=== PATIENT | male | born 1955 | race African-American/Black ===

== ENCOUNTER 2016-12-05 10:19 | Inpatient (IN) | payer OTHER ==
[~2016-12-05] VITALS: Ht 170.2 cm; Wt 85.0 kg
[~2016-12-05 10:19] MED LIST: FentaNYL CITRATE-PF 100 MCG/2 ML VIAL IVP ONE; HYDROmorphone 2 MG/ML SYRINGE IVP ONE; MIDAZOLAM HCL 2 MG/2 ML VIAL IVP ONE; MULT-71 PO
[2016-12-05 10:41] LABS: GLUCOSE,POINT OF CARE 105 MG/DL (70-110)
[2016-12-05] MEDS ORDERED: SULF1TAB42 PO (10:43)
[2016-12-05] MEDS ORDERED: ACETAMINOPHEN 1000 MG/ISO-OSM 100 ML IV ONE ×3 (11:15→17:01)
[2016-12-05] MEDS ORDERED: SODIUM CHLORIDE 0.9% 1,000 ML IV ONE ×2 (11:15→15:38)
[2016-12-05] MEDS ORDERED: VANCOMYCIN HCL 1 GM/D5% WATER 200 ML IV ONE (11:15)
[2016-12-05] MEDS ORDERED: SODIUM CHLORIDE 0.9% 100 ML ONE (11:24)
[2016-12-05] MEDS ORDERED: IOVERSOL 350 MG/ML 100 ML VIAL ONE (11:24)
[2016-12-05 11:40] LABS: BASOPHILS % (AUTO) 0.4 % (0.0-2.0); EOSINOPHILS % (AUTO) 0.6 % (1.0-6.0); HEMATOCRIT 51.9 % (41-53); HEMOGLOBIN 17.1 g/dL (13.5-17.5); LYMPHOCYTES # (AUTO) 1.4 K/uL (1.0-4.8); LYMPHOCYTES % (AUTO) 8.6 % (22.0-44.0); MEAN CORPUSCULAR HEMOGLOBIN 28.3 pg (26.0-34.0); MEAN CORPUSCULAR HGB CONC 32.9 G/dL (31.0-37.0); MEAN CORPUSCULAR VOLUME 86 fL (80-100); MONOCYTES # (AUTO) 1.2 K/uL (0.1-1.0); NEUTROPHILS # (AUTO) 13.7 K/uL (1.8-7.7); NEUTROPHILS % (AUTO) 83.4 % (40.0-70.0); PLATELET COUNT (AUTO) 189 K/uL (150-450); RED BLOOD CELL COUNT(AUTO) 6.03 MIL/uL (4.50-5.90); RED CELL DISTRIBUTION WIDTH 12.8 % (11.5-14.5); WHITE BLOOD COUNT (AUTO) 16.5 K/uL (4.5-11.0)
[2016-12-05 11:55] LABS: ANION GAP 10 mmol/L (8-16); CALCIUM, TOTAL 9.3 mg/dL (8.8-10.5); CARBON DIOXIDE 26 mmol/L (22-29); CHLORIDE 99 mmol/L (98-107); CREATININE 1.13 mg/dL (0.60-1.30); GLOMERULAR FILTR. RATE CALC > 60 mL/min (>60); POTASSIUM 4.5 mmol/L (3.5-5.1); SODIUM SERUM 135 mmol/L (136-145); UREA NITROGEN, BLOOD 14 mg/dL (7-18)
[2016-12-05 11:56] LABS: LACTIC ACID 1.2 mmol/L (0.4-2.0)
[2016-12-05 11:58] LABS: ALANINE AMINOTRANSFERASE 86 U/L (12-78); ASPARTATE AMINOTRANSFERASE 48 U/L (15-37); BILIRUBIN,TOTAL 1.1 mg/dL (0.1-1.0); TOTAL PROTEIN, SERUM 7.8 g/dL (6.4-8.2)
[2016-12-05] MEDS ORDERED: ZOLPIDEM TARTRATE 10 MG TABLET PO PRN (13:30)
[2016-12-05] MEDS ORDERED: MAGNESIUM HYDROXIDE SUSPENSION 30 ML UDCUP PO PRN (13:30)
[2016-12-05] MEDS ORDERED: ACETAMINOPHEN 325 MG TABLET PO PRN (13:30)
[2016-12-05] MEDS ORDERED: OxyCODONE HCL/ACETAMINOPHEN 5-325 MG TABLET PO PRN ×2 (13:30→16:30)
[2016-12-05] MEDS ORDERED: ONDANSETRON HCL 4 MG/2 ML VIAL IVP PRN ×2 (13:30→16:30)
[2016-12-05] MEDS ORDERED: BISACODYL 10 MG RECTAL RECTAL SUPPOSITORY PR PRN (13:30)
[2016-12-05] MEDS ORDERED: RINGERS SOLUTION,LACTATED 1,000 ML IV ONE ×2 (13:55→14:15)
[2016-12-05 14:56] LABS: GLUCOSE,POINT OF CARE 91 MG/DL (70-110)
[2016-12-05] MEDS: PIPERACILLIN/TAZO 3.375 GM/D5W 50 ML IV SCH ×2 (15:12→22:24)
[2016-12-05] MEDS ORDERED: SODIUM CHLORIDE 0.9% 10 ML ONE (15:37)
[2016-12-05] MEDS ORDERED: BACITRACIN 50,000 UNITS/VIAL ONE (15:38)
[2016-12-05] MEDS ORDERED: HEPARIN SODIUM,PORCINE 5,000 UNITS/ML VIAL SQ SCH (16:00)
[2016-12-05] MEDS ORDERED: RINGERS SOLUTION,LACTATED 500 ML IV ONE (16:17)
[2016-12-05] MEDS: HYDROmorphone 2 MG/ML SYRINGE IVP PRN ×3 (16:25→16:55)
[2016-12-05] MEDS ORDERED: HYDROmorphone 2 MG/ML SYRINGE ONE (16:26)
[2016-12-05] MEDS ORDERED: MEPERIDINE-PF 25 MG/ML SYRINGE IVP PRN (16:30)
[2016-12-05] MEDS ORDERED: NALOXONE HCL 1 MG/ML 2 ML SYG IVP PRN ×2 (16:30)
[2016-12-05 18:20] VITALS: BP 119/75
[2016-12-05 19:18] VITALS: BP 120/70
[2016-12-05] MEDS: VANCOMYCIN HCL 1 GM/D5% WATER 200 ML IV SCH (20:10)
[2016-12-05] MEDS: OXYGEN THERAPY IH SCH (20:11)
[2016-12-05] MEDS: DOCUSATE SODIUM 100 MG CAPSULE PO SCH (20:11)
[2016-12-05] MEDS ORDERED: SODIUM CHLORIDE 0.9% 500 ML IV ONE (20:15)
[2016-12-05 22:11] LABS: GLUCOSE COMMENT 1 Post Meal; GLUCOSE,POINT OF CARE 157 MG/DL (70-110)
[2016-12-05] MEDS ORDERED: NEOSTIGMINE METHYLSULFATE 1 MG/ML 10 ML VIAL IVP ONE (22:20)
[2016-12-05] MEDS ORDERED: ESMOLOL HCL 10 MG/ML 10 ML VIAL IVP ONE (22:20)
[2016-12-05] MEDS ORDERED: SUCCINYLCHOLINE CHLORIDE 20 MG/ML 10 ML VIAL IVP ONE (22:20)
[2016-12-05] MEDS ORDERED: GLYCOPYRROLATE 0.2 MG/ML VIAL IM ONE (22:20)
[2016-12-05] MEDS ORDERED: PROPOFOL 1% 20 ML VIAL IVP ONE (22:20)
[2016-12-05] MEDS ORDERED: ONDANSETRON HCL 4 MG/2 ML VIAL IVP ONE (22:20)
[2016-12-05] MEDS ORDERED: ROCURONIUM BROMIDE 10 MG/ML 5 ML VIAL IVP ONE (22:20)
[2016-12-05] MEDS: OxyCODONE HCL/ACETAMINOPHEN 5-325 MG TABLET PO PRN (22:32)
[2016-12-05 23:05] VITALS: BP 127/71
[2016-12-06] MEDS: PIPERACILLIN/TAZO 3.375 GM/D5W 50 ML IV SCH ×4 (02:55→20:48)
[2016-12-06] MEDS: OxyCODONE HCL/ACETAMINOPHEN 5-325 MG TABLET PO PRN ×2 (02:59→20:50)
[2016-12-06 04:22] VITALS: BP 116/63
[2016-12-06 07:22] VITALS: BP 117/65
[2016-12-06] MEDS: OXYGEN THERAPY IH SCH (08:00)
[2016-12-06] MEDS: VANCOMYCIN HCL 1 GM/D5% WATER 200 ML IV SCH ×2 (08:04→20:47)
[2016-12-06] MEDS: DOCUSATE SODIUM 100 MG CAPSULE PO SCH ×2 (08:04→20:48)
[2016-12-06] MEDS: PANTOPRAZOLE SODIUM 40 MG DR TABLET PO SCH (08:05)
[2016-12-06 08:16] LABS: GLUCOSE COMMENT 1 Received Meds; GLUCOSE,POINT OF CARE 110 MG/DL (70-110)
[2016-12-06 11:20] LABS: BASOPHILS % (AUTO) 0.4 % (0.0-2.0); EOSINOPHILS % (AUTO) 2.1 % (1.0-6.0); HEMATOCRIT 44.5 % (41-53); HEMOGLOBIN 14.5 g/dL (13.5-17.5); LYMPHOCYTES # (AUTO) 1.8 K/uL (1.0-4.8); LYMPHOCYTES % (AUTO) 12.1 % (22.0-44.0); MEAN CORPUSCULAR HEMOGLOBIN 28.2 pg (26.0-34.0); MEAN CORPUSCULAR HGB CONC 32.7 G/dL (31.0-37.0); MEAN CORPUSCULAR VOLUME 86 fL (80-100); MONOCYTES # (AUTO) 0.9 K/uL (0.1-1.0); MONOCYTES % (AUTO) 6.2 % (2.0-9.0); NEUTROPHILS # (AUTO) 11.6 K/uL (1.8-7.7); NEUTROPHILS % (AUTO) 79.2 % (40.0-70.0); PLATELET COUNT (AUTO) 187 K/uL (150-450); RED BLOOD CELL COUNT(AUTO) 5.15 MIL/uL (4.50-5.90); WHITE BLOOD COUNT (AUTO) 14.6 K/uL (4.5-11.0)
[2016-12-06 11:30] LABS: GLUCOSE,POINT OF CARE 112 MG/DL (70-110)
[2016-12-06 11:31] VITALS: BP 117/65
[2016-12-06 11:39] LABS: ALANINE AMINOTRANSFERASE 55 U/L (12-78); ANION GAP 3 mmol/L (8-16); ASPARTATE AMINOTRANSFERASE 30 U/L (15-37); BILIRUBIN,TOTAL 0.9 mg/dL (0.1-1.0); CALCIUM, TOTAL 8.5 mg/dL (8.8-10.5); CARBON DIOXIDE 32 mmol/L (22-29); CHLORIDE 99 mmol/L (98-107); CREATININE 1.26 mg/dL (0.60-1.30); GLOMERULAR FILTR. RATE CALC > 60 mL/min (>60); POTASSIUM 4.4 mmol/L (3.5-5.1); SODIUM SERUM 134 mmol/L (136-145); TOTAL PROTEIN, SERUM 6.8 g/dL (6.4-8.2); UREA NITROGEN, BLOOD 9 mg/dL (7-18)
[2016-12-06] MEDS ORDERED: SODIUM CL IRRIG SOLN BOTTLE 250 ML IRRIG ONE (13:43)
[2016-12-06] MEDS: MORPHINE SULFATE 2 MG/ML SYRINGE IVP PRN (13:44)
[2016-12-06 15:34] VITALS: BP 129/74
[2016-12-06 17:36] LABS: GLUCOSE,POINT OF CARE 141 MG/DL (70-110)
[2016-12-06 19:24] VITALS: BP 140/86
[2016-12-06 23:48] VITALS: BP 109/80
[2016-12-07] MEDS ORDERED: SODIUM CHLORIDE 0.9% 250 ML IV ONE (03:58)
[2016-12-07] MEDS: PIPERACILLIN/TAZO 3.375 GM/D5W 50 ML IV SCH ×4 (04:25→20:13)
[2016-12-07 04:36] VITALS: BP 109/64
[2016-12-07 06:55] LABS: BASOPHILS % (AUTO) 0.3 % (0.0-2.0); EOSINOPHILS % (AUTO) 2.6 % (1.0-6.0); HEMATOCRIT 41.7 % (41-53); HEMOGLOBIN 14.3 g/dL (13.5-17.5); LYMPHOCYTES # (AUTO) 2.2 K/uL (1.0-4.8); LYMPHOCYTES % (AUTO) 17.8 % (22.0-44.0); MEAN CORPUSCULAR HEMOGLOBIN 30.8 pg (26.0-34.0); MEAN CORPUSCULAR HGB CONC 34.4 G/dL (31.0-37.0); MEAN CORPUSCULAR VOLUME 89 fL (80-100); MONOCYTES # (AUTO) 0.8 K/uL (0.1-1.0); MONOCYTES % (AUTO) 6.3 % (2.0-9.0); NEUTROPHILS # (AUTO) 9.1 K/uL (1.8-7.7); PLATELET COUNT (AUTO) 185 K/uL (150-450); RED BLOOD CELL COUNT(AUTO) 4.66 MIL/uL (4.50-5.90); RED CELL DISTRIBUTION WIDTH 13.1 % (11.5-14.5); WHITE BLOOD COUNT (AUTO) 12.4 K/uL (4.5-11.0)
[2016-12-07 07:00] VITALS: BP 142/89
[2016-12-07 07:19] LABS: ALANINE AMINOTRANSFERASE 58 U/L (12-78); ALBUMIN 2.9 g/dL (3.4-5.0); ANION GAP 7 mmol/L (8-16); ASPARTATE AMINOTRANSFERASE 33 U/L (15-37); BILIRUBIN,TOTAL 0.9 mg/dL (0.1-1.0); CALCIUM, TOTAL 8.2 mg/dL (8.8-10.5); CARBON DIOXIDE 31 mmol/L (22-29); CHLORIDE 100 mmol/L (98-107); CREATININE 1.18 mg/dL (0.60-1.30); GLOMERULAR FILTR. RATE CALC > 60 mL/min (>60); POTASSIUM 4.2 mmol/L (3.5-5.1); SODIUM SERUM 138 mmol/L (136-145); TOTAL PROTEIN, SERUM 6.8 g/dL (6.4-8.2); UREA NITROGEN, BLOOD 11 mg/dL (7-18)
[2016-12-07] MEDS: PANTOPRAZOLE SODIUM 40 MG DR TABLET PO SCH (07:53)
[2016-12-07] MEDS: DOCUSATE SODIUM 100 MG CAPSULE PO SCH ×2 (07:53→20:12)
[2016-12-07] MEDS: OXYGEN THERAPY IH SCH ×2 (08:00→20:00)
[2016-12-07] MEDS: VANCOMYCIN HCL 1 GM/D5% WATER 200 ML IV SCH ×3 (08:50→23:35)
[2016-12-07 11:06] VITALS: BP 133/77
[2016-12-07 11:46] LABS: GLUCOSE,POINT OF CARE 157 MG/DL (70-110)
[2016-12-07] MEDS ORDERED: LIDOCAINE HCL 5% TRANSDERMAL PATCH TD ONE (14:00)
[2016-12-07] MEDS: MORPHINE SULFATE 2 MG/ML SYRINGE IVP PRN (15:05)
[2016-12-07 15:15] VITALS: BP 121/86
[2016-12-07] MEDS ORDERED: LIDOCAINE HCL 4% 50 ML SOLUTION TP ONE (15:45)
[2016-12-07] MEDS ORDERED: LIDOCAINE HCL 2% 30 ML JELLY TP SCH (17:00)
[2016-12-07 19:52] VITALS: BP 116/69
[2016-12-08] VITALS (7 sets, daily range): BP systolic 99–143; BP diastolic 61–96
[2016-12-08] MEDS: PIPERACILLIN/TAZO 3.375 GM/D5W 50 ML IV SCH ×4 (03:11→20:26)
[2016-12-08 07:11] LABS: BASOPHILS # (AUTO) 0.04 K/uL (0.00-0.20); BASOPHILS % (AUTO) 0.4 % (0.0-2.0); EOSINOPHILS # (AUTO) 0.27 K/uL (0.00-0.70); EOSINOPHILS % (AUTO) 2.77 % (1.0-6.0); HEMATOCRIT 43.9 % (41-53); HEMOGLOBIN 14.9 g/dL (13.5-17.5); LYMPHOCYTES # (AUTO) 1.8 K/uL (1.0-4.8); LYMPHOCYTES % (AUTO) 18.6 % (22.0-44.0); MEAN CORPUSCULAR HEMOGLOBIN 29.2 pg (26.0-34.0); MEAN CORPUSCULAR HGB CONC 33.9 G/dL (31.0-37.0); MEAN CORPUSCULAR VOLUME 86 fL (80-100); MONOCYTES # (AUTO) 0.5 K/uL (0.1-1.0); MONOCYTES % (AUTO) 5.1 % (2.0-9.0); NEUTROPHILS # (AUTO) 7.1 K/uL (1.8-7.7); NEUTROPHILS % (AUTO) 73.2 % (40.0-70.0); PLATELET COUNT (AUTO) 223 K/uL (150-450); RED CELL DISTRIBUTION WIDTH 12.6 % (11.5-14.5); WHITE BLOOD COUNT (AUTO) 9.7 K/uL (4.5-11.0)
[2016-12-08 07:50] LABS: ALANINE AMINOTRANSFERASE 53 U/L (12-78); ALBUMIN 2.8 g/dL (3.4-5.0); ANION GAP 8 mmol/L (8-16); ASPARTATE AMINOTRANSFERASE 38 U/L (15-37); BILIRUBIN,TOTAL 0.5 mg/dL (0.1-1.0); CALCIUM, TOTAL 8.4 mg/dL (8.8-10.5); CARBON DIOXIDE 29 mmol/L (22-29); CHLORIDE 103 mmol/L (98-107); GLOMERULAR FILTR. RATE CALC > 60 mL/min (>60); POTASSIUM 4.1 mmol/L (3.5-5.1); SODIUM SERUM 140 mmol/L (136-145); UREA NITROGEN, BLOOD 10 mg/dL (7-18)
[2016-12-08] MEDS: VANCOMYCIN HCL 1 GM/D5% WATER 200 ML IV SCH ×3 (08:51→23:15)
[2016-12-08] MEDS: DOCUSATE SODIUM 100 MG CAPSULE PO SCH ×2 (08:51→20:26)
[2016-12-08] MEDS: PANTOPRAZOLE SODIUM 40 MG DR TABLET PO SCH (08:51)
[2016-12-08] MEDS: MORPHINE SULFATE 2 MG/ML SYRINGE IVP PRN (16:09)
[2016-12-08] MEDS ORDERED: SODIUM CHLORIDE 0.9% 500 ML IV ONE (17:31)
[2016-12-08] MEDS: OXYGEN THERAPY IH SCH (20:00)
[2016-12-09] MEDS: PIPERACILLIN/TAZO 3.375 GM/D5W 50 ML IV SCH ×2 (03:40→12:14)
[2016-12-09 04:55] VITALS: BP 108/64
[2016-12-09 06:30] LABS: BASOPHILS % (AUTO) 0.2 % (0.0-2.0); EOSINOPHILS % (AUTO) 3.2 % (1.0-6.0); HEMATOCRIT 44.7 % (41-53); HEMOGLOBIN 15.3 g/dL (13.5-17.5); LYMPHOCYTES # (AUTO) 2.5 K/uL (1.0-4.8); LYMPHOCYTES % (AUTO) 25.7 % (22.0-44.0); MEAN CORPUSCULAR HEMOGLOBIN 30.4 pg (26.0-34.0); MEAN CORPUSCULAR HGB CONC 34.2 G/dL (31.0-37.0); MEAN CORPUSCULAR VOLUME 89 fL (80-100); MONOCYTES # (AUTO) 0.6 K/uL (0.1-1.0); MONOCYTES % (AUTO) 5.9 % (2.0-9.0); NEUTROPHILS # (AUTO) 6.3 K/uL (1.8-7.7); PLATELET COUNT (AUTO) 243 K/uL (150-450); RED BLOOD CELL COUNT(AUTO) 5.03 MIL/uL (4.50-5.90); RED CELL DISTRIBUTION WIDTH 13.1 % (11.5-14.5); WHITE BLOOD COUNT (AUTO) 9.7 K/uL (4.5-11.0)
[2016-12-09 07:28] VITALS: BP 118/75
[2016-12-09 07:32] LABS: ALANINE AMINOTRANSFERASE 54 U/L (12-78); ALBUMIN 3.1 g/dL (3.4-5.0); ANION GAP 8 mmol/L (8-16); ASPARTATE AMINOTRANSFERASE 39 U/L (15-37); BILIRUBIN,TOTAL 0.6 mg/dL (0.1-1.0); CALCIUM, TOTAL 8.8 mg/dL (8.8-10.5); CARBON DIOXIDE 30 mmol/L (22-29); CHLORIDE 99 mmol/L (98-107); CREATININE 1.13 mg/dL (0.60-1.30); GLOMERULAR FILTR. RATE CALC > 60 mL/min (>60); POTASSIUM 4.4 mmol/L (3.5-5.1); SODIUM SERUM 137 mmol/L (136-145); TOTAL PROTEIN, SERUM 7.4 g/dL (6.4-8.2); UREA NITROGEN, BLOOD 11 mg/dL (7-18)
[2016-12-09] MEDS: VANCOMYCIN HCL 1 GM/D5% WATER 200 ML IV SCH (08:12)
[2016-12-09] MEDS: PANTOPRAZOLE SODIUM 40 MG DR TABLET PO SCH (08:46)
[2016-12-09] MEDS: DOCUSATE SODIUM 100 MG CAPSULE PO SCH (08:46)
[2016-12-09] MEDS ORDERED: DOXY100C PO (10:33)
[2016-12-09 11:32] VITALS: BP 115/70
[2016-12-09 15:44] VITALS: BP 119/77
== END 2016-12-09 17:10 | disposition home or self-care (01) | DRG 710 ==
LOC: EMS 10:21 → 6N 14:18 → MERGE 14:18
PROVIDERS: ADMIT Hospitalist; ATTEND Hospitalist
PROC: 0KBG0ZZ Excision of Left Trunk Muscle, Open Approach (ICD-10-PCS; principal; 2016-12-05 14:30)
DX: A41.9 Sepsis, unspecified organism (principal); M60.08 Infective myositis, other site; I10 Essential (primary) hypertension; L02.212 Cutaneous abscess of back [any part, except buttock and flank]; E11.9 Type 2 diabetes mellitus without complications; F41.9 Anxiety disorder, unspecified; I45.6 Pre-excitation syndrome; Z98.890 Other specified postprocedural states; Z91.048 Other nonmedicinal substance allergy status; Z79.2 Long term (current) use of antibiotics
CPT/HCPCS: 71260; 82962; 83605; 87070; 87081; 87205; 88304; 93005; 96365; 96366; 96368; 99285; G0238; J0131; J0330; J1170; J2250; J2270; J2405; J2543; J2704; J3010; J3370; J3490; J7030; J7040; J7050; J7120

== ENCOUNTER 2016-12-12 12:19 | Emergency (ER) | payer OTHER ==
[~2016-12-12] VITALS: Ht 170.2 cm; Wt 84.5 kg
[~2016-12-12 12:19] MED LIST changes: +DOXY100C PO; -FentaNYL CITRATE-PF 100 MCG/2 ML VIAL IVP ONE; -HYDROmorphone 2 MG/ML SYRINGE IVP ONE; -MIDAZOLAM HCL 2 MG/2 ML VIAL IVP ONE; -MULT-71 PO; +SULF1TAB42 PO
[2016-12-12] MEDS ORDERED: POVIDONE-IODINE 10% 15 ML SOLUTION UD TP ONE (13:15)
[2016-12-12] MEDS ORDERED: HYDROGEN PEROXIDE 118 ML SOLUTION TP ONE (14:30)
[2016-12-12 14:38] VITALS: BP 131/88
== END 2016-12-12 14:39 | disposition home or self-care (01) ==
LOC: EMS 12:21 → MERGE 12:21 → EMS 14:39
DX: Z48.00 Encounter for change or removal of nonsurgical wound dressing (principal); L02.212 Cutaneous abscess of back [any part, except buttock and flank]; E11.9 Type 2 diabetes mellitus without complications; I10 Essential (primary) hypertension; Z91.048 Other nonmedicinal substance allergy status; Z88.8 Allergy status to other drugs, medicaments and biological substances
CPT/HCPCS: 99283

== ENCOUNTER 2016-12-14 06:55 | Emergency (ER) | payer OTHER ==
[~2016-12-14] VITALS: Ht 170.2 cm; Wt 85.0 kg
[2016-12-14] MEDS ORDERED: FISH1CAP27 PEG (07:05)
[2016-12-14 07:12] LABS: GLUCOSE,POINT OF CARE 108 MG/DL (70-110)
[2016-12-14 08:27] VITALS: BP 142/81
== END 2016-12-14 08:42 | disposition home or self-care (01) ==
LOC: MERGE 06:56 → EMS 06:56
DX: L02.212 Cutaneous abscess of back [any part, except buttock and flank] (principal); I10 Essential (primary) hypertension; F41.9 Anxiety disorder, unspecified; E11.9 Type 2 diabetes mellitus without complications
CPT/HCPCS: 82962; 99282

== ENCOUNTER 2016-12-17 06:58 | Emergency (ER) | payer OTHER ==
[~2016-12-17] VITALS: Ht 170.2 cm; Wt 84.5 kg
[~2016-12-17 06:58] MED LIST changes: +FISH1CAP27 PEG
[2016-12-17 07:21] LABS: GLUCOSE,POINT OF CARE 120 MG/DL (70-110)
[2016-12-17 07:32] VITALS: BP 139/90
== END 2016-12-17 07:37 | disposition home or self-care (01) ==
LOC: MERGE 06:59 → EMS 06:59
DX: Z48.00 Encounter for change or removal of nonsurgical wound dressing (principal); E11.9 Type 2 diabetes mellitus without complications; I10 Essential (primary) hypertension; Z91.09 Other allergy status, other than to drugs and biological substances; Z88.8 Allergy status to other drugs, medicaments and biological substances
CPT/HCPCS: 82962; 99282

== ENCOUNTER 2016-12-19 14:54 | Emergency (ER) | payer OTHER ==
[~2016-12-19] VITALS: Ht 170.2 cm; Wt 83.6 kg
[2016-12-19 15:07] LABS: GLUCOSE,POINT OF CARE 99 MG/DL (70-110)
[2016-12-19 17:35] VITALS: BP 140/97
== END 2016-12-19 17:43 | disposition home or self-care (01) ==
LOC: MERGE 14:55 → EMS 14:55
DX: Z48.00 Encounter for change or removal of nonsurgical wound dressing (principal); E11.9 Type 2 diabetes mellitus without complications; I10 Essential (primary) hypertension; Z91.048 Other nonmedicinal substance allergy status; Z91.09 Other allergy status, other than to drugs and biological substances
CPT/HCPCS: 82962; 99282

== ENCOUNTER 2016-12-21 06:54 | Emergency (ER) | payer OTHER ==
[~2016-12-21] VITALS: Ht 170.2 cm; Wt 83.6 kg
[2016-12-21 07:06] LABS: GLUCOSE,POINT OF CARE 115 MG/DL (70-110)
[2016-12-21 08:46] VITALS: BP 142/97
== END 2016-12-21 08:50 | disposition home or self-care (01) ==
LOC: EMS 06:55 → MERGE 06:55 → EMS 08:50
DX: Z48.00 Encounter for change or removal of nonsurgical wound dressing (principal); E11.9 Type 2 diabetes mellitus without complications; I10 Essential (primary) hypertension; Z91.048 Other nonmedicinal substance allergy status; Z91.09 Other allergy status, other than to drugs and biological substances
CPT/HCPCS: 82962; 99282; 99283

== ENCOUNTER 2016-12-25 07:08 | Emergency (ER) | payer OTHER ==
[~2016-12-25] VITALS: Ht 170.2 cm; Wt 83.6 kg
[2016-12-25 07:22] LABS: GLUCOSE,POINT OF CARE 101 MG/DL (70-110)
[2016-12-25 08:40] VITALS: BP 132/82
== END 2016-12-25 08:41 | disposition home or self-care (01) ==
LOC: MERGE 07:09 → EMS 07:09
DX: Z48.01 Encounter for change or removal of surgical wound dressing (principal); E11.9 Type 2 diabetes mellitus without complications; I10 Essential (primary) hypertension; Z88.8 Allergy status to other drugs, medicaments and biological substances; Z91.018 Allergy to other foods
CPT/HCPCS: 82962; 99282

== ENCOUNTER 2016-12-27 07:09 | Emergency (ER) | payer OTHER ==
[~2016-12-27] VITALS: Ht 170.2 cm; Wt 83.5 kg
[2016-12-27] MEDS ORDERED: DOXY100C PO (07:29)
[2016-12-27 07:32] LABS: GLUCOSE,POINT OF CARE 107 MG/DL (70-110)
[2016-12-27 07:42] VITALS: BP 148/96
== END 2016-12-27 08:29 | disposition home or self-care (01) ==
LOC: EMS 07:12
DX: Z48.00 Encounter for change or removal of nonsurgical wound dressing (principal); E11.9 Type 2 diabetes mellitus without complications; I10 Essential (primary) hypertension
CPT/HCPCS: 82962; 99282

== ENCOUNTER 2017-01-01 06:10 | Emergency (ER) | payer OTHER ==
[~2017-01-01] VITALS: Ht 170.2 cm; Wt 83.6 kg
[2017-01-01 06:21] LABS: GLUCOSE,POINT OF CARE 72 MG/DL (70-110)
[2017-01-01 06:28] VITALS: BP 126/85
== END 2017-01-01 07:27 | disposition home or self-care (01) ==
LOC: MERGE 06:11 → EMS 06:11
DX: Z48.00 Encounter for change or removal of nonsurgical wound dressing (principal); I10 Essential (primary) hypertension; E11.9 Type 2 diabetes mellitus without complications; Z91.048 Other nonmedicinal substance allergy status
CPT/HCPCS: 82962; 99282

== ENCOUNTER 2017-01-03 06:59 | Emergency (ER) | payer OTHER ==
[~2017-01-03] VITALS: Ht 170.2 cm; Wt 82.7 kg
[2017-01-03 07:27] LABS: GLUCOSE,POINT OF CARE 125 MG/DL (70-110)
[2017-01-03 07:43] VITALS: BP 128/94
== END 2017-01-03 08:38 | disposition home or self-care (01) ==
LOC: EMS 07:01
DX: Z48.00 Encounter for change or removal of nonsurgical wound dressing (principal); E11.9 Type 2 diabetes mellitus without complications; I10 Essential (primary) hypertension
CPT/HCPCS: 82962; 99282

== ENCOUNTER 2017-01-07 06:59 | Emergency (ER) | payer OTHER ==
[~2017-01-07] VITALS: Ht 170.2 cm; Wt 83.5 kg
[2017-01-07 07:05] VITALS: BP 123/89
[2017-01-07 07:17] LABS: GLUCOSE,POINT OF CARE 132 MG/DL (70-110)
== END 2017-01-07 09:30 | disposition left against medical advice (07) ==
LOC: EMS 07:00
DX: Z48.00 Encounter for change or removal of nonsurgical wound dressing (principal); Z53.21 Procedure and treatment not carried out due to patient leaving prior to being seen by health care provider
CPT/HCPCS: 82962

== ENCOUNTER 2017-01-08 06:53 | Emergency (ER) | payer OTHER ==
[~2017-01-08] VITALS: Ht 170.2 cm; Wt 83.6 kg
[~2017-01-08 06:53] MED LIST changes: -SULF1TAB42 PO
[2017-01-08 06:59] VITALS: BP 145/90
[2017-01-08 07:11] LABS: GLUCOSE,POINT OF CARE 112 MG/DL (70-110)
== END 2017-01-08 08:38 | disposition home or self-care (01) ==
LOC: EMS 06:54
DX: Z48.00 Encounter for change or removal of nonsurgical wound dressing (principal); E11.9 Type 2 diabetes mellitus without complications; I10 Essential (primary) hypertension; Z91.048 Other nonmedicinal substance allergy status
CPT/HCPCS: 82962; 99282

== ENCOUNTER 2017-01-11 07:09 | Emergency (ER) | payer OTHER ==
[~2017-01-11] VITALS: Ht 170.2 cm; Wt 83.6 kg
[2017-01-11] MEDS ORDERED: OMEG-30 PO (07:13)
[2017-01-11 07:26] LABS: GLUCOSE,POINT OF CARE 114 MG/DL (70-110)
[2017-01-11 08:04] VITALS: BP 135/80
== END 2017-01-11 08:26 | disposition home or self-care (01) ==
LOC: EMS 07:10
DX: Z48.00 Encounter for change or removal of nonsurgical wound dressing (principal); L02.212 Cutaneous abscess of back [any part, except buttock and flank]; F41.9 Anxiety disorder, unspecified; I10 Essential (primary) hypertension; E11.9 Type 2 diabetes mellitus without complications; Z91.018 Allergy to other foods
CPT/HCPCS: 82962; 99282

== ENCOUNTER 2017-01-15 06:56 | Emergency (ER) | payer OTHER ==
[~2017-01-15] VITALS: Ht 170.2 cm; Wt 83.6 kg
[~2017-01-15 06:56] MED LIST changes: -FISH1CAP27 PEG; +OMEG-30 PO
[2017-01-15 07:12] LABS: GLUCOSE,POINT OF CARE 122 MG/DL (70-110)
[2017-01-15 08:13] VITALS: BP 136/89
== END 2017-01-15 08:21 | disposition home or self-care (01) ==
LOC: EMS 06:58
DX: Z48.00 Encounter for change or removal of nonsurgical wound dressing (principal); E11.9 Type 2 diabetes mellitus without complications; I10 Essential (primary) hypertension; Z91.048 Other nonmedicinal substance allergy status
CPT/HCPCS: 82962; 99282

== ENCOUNTER 2017-01-19 07:05 | Emergency (ER) | payer OTHER ==
[~2017-01-19] VITALS: Ht 172.7 cm; Wt 84.1 kg
[2017-01-19 07:21] VITALS: BP 137/102
[2017-01-19 07:21] LABS: GLUCOSE,POINT OF CARE 110 MG/DL (70-110)
== END 2017-01-19 08:25 | disposition left against medical advice (07) ==
LOC: EMS 07:06
DX: Z48.00 Encounter for change or removal of nonsurgical wound dressing (principal); Z53.21 Procedure and treatment not carried out due to patient leaving prior to being seen by health care provider
CPT/HCPCS: 82962

== ENCOUNTER 2017-01-20 06:57 | Emergency (ER) | payer OTHER ==
[~2017-01-20] VITALS: Ht 170.2 cm; Wt 81.5 kg
[2017-01-20 07:44] VITALS: BP 143/99
== END 2017-01-20 08:21 | disposition home or self-care (01) ==
LOC: EMS 07:00
DX: Z48.01 Encounter for change or removal of surgical wound dressing (principal); E11.9 Type 2 diabetes mellitus without complications; I10 Essential (primary) hypertension; Z88.8 Allergy status to other drugs, medicaments and biological substances
CPT/HCPCS: 82962; 99282

== ENCOUNTER 2017-01-30 07:24 | Emergency (ER) | payer OTHER ==
[~2017-01-30] VITALS: Ht 172.7 cm; Wt 82.0 kg
[2017-01-30 07:37] LABS: GLUCOSE,POINT OF CARE 112 MG/DL (70-110)
[2017-01-30 08:11] VITALS: BP 156/70
== END 2017-01-30 08:12 | disposition home or self-care (01) ==
LOC: EMS 07:25
DX: T81.31XA Disruption of external operation (surgical) wound, not elsewhere classified, initial encounter (principal); E11.9 Type 2 diabetes mellitus without complications; I10 Essential (primary) hypertension
CPT/HCPCS: 82962; 99282